=== PATIENT | male | born 1970 | race Caucasian/White ===

== ENCOUNTER 2024-09-28 19:25 | Emergency (ER) | payer OTHER, SELFPAY ==
[2024-09-28 19:31] VITALS: BP 142/98
[2024-09-28 20:17] LABS: % Basophils 0.3 % (0-2); % Immature Granulocytes 0.2 % (0-0.5); % Lymphocytes 36.7 % (20.5-51.1); % Monocytes 9.2 % (1.7-9.3); % Neutrophils 51.6 % (42.2-75.2); Absolute Eosinophils 0.1 10^3/uL (0-0.7); Absolute Lymphocytes 2.2 10^3/uL (1.2-3.4); Absolute Monocytes 0.6 10^3/uL (0.1-0.6); Absolute Neutrophils 3.2 10^3/uL (1.4-6.5); Hematocrit 40.6 % (39.0-52.0); Hemoglobin 14.2 g/dL (13.0-18.0); Mean Corpuscular Hgb 29.5 pg (27.0-31.0); Mean Corpuscular Volume 84.2 fL (80.0-94.0); Mean Platelet Volume 9.8 fL (7.4-10.4); Nucleated Red Blood Cells % 0 % (-); Platelet Count 199 10^3/uL (130-400); Red Blood Cell Count 4.82 10^6/uL (4.70-6.10); White Blood Cell Count 6.1 10^3/uL (4.8-10.8)
[2024-09-28 20:33] LABS: ALT (SGPT) 36 U/L (0-50); AST (SGOT) 23 U/L (17-59); Albumin 4.9 g/dl (3.5-5.0); Alkaline Phosphatase 93 U/L (38-126); Blood Urea Nitrogen 17 mg/dl (9-20); Calcium 9.9 mg/dl (8.4-10.2); Carbon Dioxide 25 mmol/L (22-30); Chloride 101 mmol/L (98-107); Glucose 94 mg/dl (70-99); Sodium 136 mmol/L (135-145); Total Bilirubin 0.8 mg/dl (0.2-1.3); Total Protein 7.2 g/dl (6.3-8.2); eGFR > 60.00
[2024-09-28 20:43] LABS: Troponin I < 0.012 ng/ml
[2024-09-28 20:59] VITALS: BMI 31.1
[2024-09-28 21:01] VITALS: BP 134/97
--- NOTE | 2024-09-28 21:41 | ED.GENMED ---
History of Present Illness
General
Chief Complaint: Blood Pressure Problem
Source: patient
Exam Limitations: none
Time Seen by Provider: 09/28/24 21:41
History of Present Illness
History of Present Illness:
54-year-old male complaining of elevated blood pressure. [place] slightly off throughout the day. Only complaining of some lightheadedness. Could not be more specific than that. No unusual headache visual issues speech issues gait issues or other
neurologic symptoms. Patient is on low-dose amlodipine and cholesterol medications. History of CVA. Feeling better at this time
Past History
Past History
ED Past Medical History: CVA, HTN and Hypercholesterolemia
ED Past Surgical History: Orthopedic and Other (Hernia)
Social History
Tobacco: Non-smoker
Personal:
Living: with family
Review of Systems
Review of Systems
All Other Systems: Not applicable
Respiratory: Reports no symptoms
Cardiac: Reports no symptoms
Phy Exam
Physical Exam
Physical Exam:
GENERAL: Alert and oriented in no apparent distress
EYE: Orbits normal.
NECK: Supple, no carotid bruit
ENT: Pharynx without erythema
CARDIAC: Regular rate and rhythm without any obvious murmurs.
LUNGS: Clear breath sounds,normal
ABDOMEN: Soft, without focal tenderness or distention
NEUROLOGICAL: Alert and oriented , cranial nerves II through XII intact. Speech normal. Zhythc-nl-[id number] normal. No drift. Able to jara normal. Light touch intact. By confrontation normal.
SKIN: Warm and dry, no rash or lesion, no discoloration, skin intact.
MUSCULOSKELETAL: No edema,no deformity.Good color
PSYCH: Normal and appropriate interaction.
Course
Orders/Labs/Results
Orders:
Orders
09/28/24 19:36
ECG [Electrocardiogram (*1)] Urgent
Reason for Study: Vertigo / Dizzy
09/28/24 19:37
EKG- Treatment ONCE
09/28/24 19:52
Complete Blood Count/With Diff Urgent
Comprehensive Metabolic Panel Urgent
Troponin I Urgent
09/28/24 19:52
09/28/24 19:52
Vital Signs
Initial and Last Documented VS:
Initial Vital Signs
Temp Pulse Resp BP Pulse Ox
97.9 F 86 16 142/98 99
09/28/24 19:31 09/28/24 19:31 09/28/24 19:31 09/28/24 19:31 09/28/24 19:31
Last Documented Vital Signs
Temp Pulse Resp BP Pulse Ox
97.9 F 86 16 142/98 99
09/28/24 19:31 09/28/24 19:31 09/28/24 19:31 09/28/24 19:31 09/28/24 19:31
MDM/Problems Addressed
Differential Diagnosis Includes:
Patient with some vague mild nonspecific lightheaded symptoms. Not describing disequilibrium or vertigo. Essentially resolved. Blood pressure mildly elevated. No acute management of blood pressure. Will get a few more readings. No indication
for CT scan. Feel it would not be beneficial or helpful in this case. This was discussed with the patient.
*Pulse Oximetry
Patient hypoxic: no
*EKG
Interpreted by ED Provider?: Yes
Interpretation: normal
Comparison EKG: no comparison EKG present
Heart Rate: 68
Rate: normal
Rhythm: sinus
Willis: normal axis
Interval: normal interval
QRS Pattern: normal QRS
Ischemia: no ischemia
Update Note
Update Note:
Patient's blood pressure 130s over 80s. Medically stable. No distress. Anxious to leave. Discharged to follow-up
ED Attending Note
-
Portions of this chart may have been created with voice recognition software.� Occasional wrong word or��sound alike� substitutions may have occurred due to the inherent limitations of voice recognition software.
Discharge Plan
Departure
Patient Disposition: Home (Routine Discharge)
Date of Disposition: 09/28/24
Time of Disposition: 22:13
Patient with high blood pressure during this ER visit?: Yes
Discharge Problem:
Lightheadedness/hypertension, History of CVA
Instructions: BLOOD PRESSURE
Referrals:
Guerrero Mccoy MD [Family Provider] - Follow up in 2-3 days
Activity Restrictions/Additional Instructions:
Monitor your blood pressure at home. If remains elevated consider increasing your amlodipine.
Return immediately with any neurologic symptoms, unusual headache visual issues speech issues gait issues focal weakness etc.
Interventions
Interventions:
*Risk Screen - Suicide Last Done: 09/28/24 20:59
*General Assessment Last Done: 09/28/24 20:59
*Neglect/Abuse Screening Last Done: 09/28/24 20:59
*ED- Fall Risk Assessment Last Done: 09/28/24 20:59
*ED COVID-19 Vaccine History Last Done: 09/28/24 21:00
ED- Cardiac Assessment Last Done: 09/28/24 21:02
ED- Neurological Assessment Last Done: 09/28/24 21:02
ED- Pulmonary Assessment Last Done: 09/28/24 21:02
Discharge Date and Time
Print Language: SLOVAK
[2024-09-28 22:00] VITALS: BP 130/81
== END 2024-09-28 22:15 | disposition home or self-care (01) ==
LOC: EMR 19:25
PROVIDERS: EMERGENCY PHYSICIAN Emergency Medicine; FAMILY PHYSICIAN Internal Medicine Geriatric Medicine
DX: R42 Dizziness and giddiness (principal); I10 Essential (primary) hypertension; Z86.73 Personal history of transient ischemic attack (TIA), and cerebral infarction without residual deficits; E78.00 Pure hypercholesterolemia, unspecified
CPT/HCPCS: 99284; 80053; 84484; 85025; 93005